=== PATIENT | male | born 1930 | race Caucasian/White ===

== ENCOUNTER 2018-09-13 07:33 | Day surgery (SDC) | payer MEDICARE, OTHER ==
[~2018-09-13] VITALS: Ht 175.3 cm; Wt 92.1 kg
[~2018-09-13 07:33] MED LIST: ATOR10 PO; Acetaminophen325 M1 PO; CEFU500T30 PO; DEXA4 PO; FAMO20 PO; FINA5 PO; INSU100I6 SC; LEVEMIR FL100 UNIT/1 SC; METF500 PO; OXYC5 PO; Rapaflo4 MG PO; SACC250C PO; SENN187 PO; TAMS.4ER PO; XARELTO10 MG PO
== END 2018-09-13 09:54 | disposition home or self-care (01) ==
LOC: ORSCSDS 07:33
PROVIDERS: Surgery
PROC: 0DBH8ZX Excision of Cecum, Via Natural or Artificial Opening Endoscopic, Diagnostic (ICD-10-PCS; principal; 2018-09-13 09:00)
DX: Z12.11 Encounter for screening for malignant neoplasm of colon (principal); D12.0 Benign neoplasm of cecum; Z85.048 Personal history of other malignant neoplasm of rectum, rectosigmoid junction, and anus; K21.9 Gastro-esophageal reflux disease without esophagitis; I10 Essential (primary) hypertension; I48.91 Unspecified atrial fibrillation; E66.9 Obesity, unspecified; Z68.30 Body mass index [BMI] 30.0-30.9, adult; Z79.01 Long term (current) use of anticoagulants; Z79.899 Other long term (current) drug therapy
CPT/HCPCS: 82947; 88305; J7120